=== PATIENT | female | born 1990 | race Caucasian/White ===

== ENCOUNTER 2018-05-19 01:10 | Emergency (ER) | payer MEDICARE, OTHER ==
[~2018-05-19] VITALS: Ht 157.5 cm; Wt 130.9 kg
[2018-05-19 03:25] VITALS: BP 123/88
== END 2018-05-19 03:26 | disposition home or self-care (01) ==
LOC: EME 01:10
DX: S89.91XA Unspecified injury of right lower leg, initial encounter (principal); W18.30XA Fall on same level, unspecified, initial encounter; Z33.1 Pregnant state, incidental; Z87.891 Personal history of nicotine dependence